=== PATIENT | female | born 1960 | race Caucasian/White ===

== ENCOUNTER 2016-07-30 15:08 | Emergency (ER) | payer SELFPAY ==
[~2016-07-30] VITALS: Ht 167.6 cm; Wt 118.0 kg
[2016-07-30 15:15] VITALS: BP 140/81
[2016-07-30] MEDS ORDERED: ABX PO (15:24)
[2016-07-30] MEDS ORDERED: METF500T4 PO (15:24)
[2016-07-30] MEDS ORDERED: SIMV5TAB6 PO (15:24)
[2016-07-30 16:37] LABS: GLUCOSE,POINT OF CARE 255 MG/DL (70-110)
== END 2016-07-30 17:11 | disposition home or self-care (01) ==
LOC: EMS 15:10
DX: J40 Bronchitis, not specified as acute or chronic (principal); E11.65 Type 2 diabetes mellitus with hyperglycemia; E78.00 Pure hypercholesterolemia, unspecified
CPT/HCPCS: 82948; 82962; 93005; 99283